=== PATIENT | female | born 1945 | race Caucasian/White ===

== ENCOUNTER → 2023-12-23 09:48 | Outpatient (REF) | payer MEDICARE, SELFPAY | LOC: HWRAD 09:48 | PROVIDERS: ATTENDING PHYSICIAN Obstetrics & Gynecology; FAMILY PHYSICIAN Student in an Organized Health Care Education/Training Program | DX: Z00.00 Encounter for general adult medical examination without abnormal findings (principal); N95.1 Menopausal and female climacteric states; Z12.31 Encounter for screening mammogram for malignant neoplasm of breast | CPT/HCPCS: 77063; 77067; 77080 ==

== ENCOUNTER 2025-01-16 16:14 | Day surgery (SDC) | payer MEDICARE, SELFPAY ==
[2025-01-16 12:59] VITALS: BP 160/91
--- NOTE | 2025-01-16 14:36 | ED.GENMED ---
History of Present Illness
General
Chief Complaint: Foreign Body Ingestion
Source: patient
Time Seen by Provider: 01/16/25 14:23
History of Present Illness
History of Present Illness:
79-year-old female with no significant past medical history presenting to the emergency department from her dentist office for evaluation after a piece of dental equipment came loose and patient accidentally aspirated the small foreign body.
Patient went to urgent care who performed chest x-ray and there was concern that the foreign body is located within the right mainstem bronchus/hilar region. Patient is not having any difficulty breathing, swallowing, no drooling or spitting. She
has no other concerns at this time.
Past History
Past History
ED Past Medical History: None
ED Past Surgical History: None
Social History
Tobacco: Non-smoker
Alcohol: None
Drug: None
Personal:
Living: with family
Employment: Retired
Review of Systems
Review of Systems
All Other Systems: ROS reviewed and negative except as documented in HPI and ROS
Phy Exam
Physical Exam
Physical Exam:
GENERAL: Alert , in no apparent distress
EYE: conjunctiva clear
NECK: Supple
ENT: o/p clr, mmm.
CARDIAC: Regular rate and rhythm
LUNGS: Clear breath sounds bilaterally, no acute respiratory distress, no wheezes/rales/rhonchi
NEUROLOGICAL: Alert and oriented
SKIN: Warm and dry, skin intact.
MUSCULOSKELETAL: well perfused.
PSYCH: Normal and appropriate interaction.
Scores
Heart Failure Risk
Heart Failure Risk Score: Not Applicable
Heart Score for Chest Pain Patients
STEMI patient?: Not applicable
Withdrawal Assessment of Alcohol
Withdrawal Assessment Completed?: Not applicable
Course
Vital Signs
Initial and Last Documented VS:
Initial Vital Signs
Temp Pulse Resp BP Pulse Ox
97.6 F 80 16 160/91 96
01/16/25 12:59 01/16/25 12:59 01/16/25 12:59 01/16/25 12:59 01/16/25 12:59
Last Documented Vital Signs
Temp Pulse Resp BP Pulse Ox
97.6 F 80 16 160/91 96
01/16/25 12:59 01/16/25 12:59 01/16/25 12:59 01/16/25 12:59 01/16/25 12:59
MDM/Problems Addressed
Differential Diagnosis Includes:
Accidental foreign body ingestion, gastrointestinal foreign body
MDM/Problems Addressed:
79-year-old female presenting to the ER for evaluation after accidental foreign body ingestion. X-ray at urgent care showed the suspected foreign body within the right mainstem bronchus. Will notify pulmonary as patient will likely need
bronchoscopy for foreign body retrieval. Advised to remain NPO. She is otherwise stable.
*Pulse Oximetry
Patient hypoxic: no
*Critical Care Note
Total Time (30-74mins, 75-104mins- exclusive of procedures): Not Applicable
Data Reviewed
Review of Other/Old Records Reveals: Radiology Studies
Patient Management
Escalation/DeEscalation of care consider admission/obs:
Pulmonary came to the ER to see the patient. They are planning to take her for bronchoscopy today. Patient to be discharged from upstairs.
ED Attending Note
-
Portions of this chart may have been created with voice recognition software.� Occasional wrong word or��sound alike� substitutions may have occurred due to the inherent limitations of voice recognition software.
Discharge Plan
Departure
Patient Disposition: Other
Date of Disposition: 01/16/25
Time of Disposition: 15:07
Discharge Problem:
Aspiration of foreign body
Prescriptions:
No Action
diazepam 5 MG tablet
5 mg PO BIDPRN PRN (Reason: MUSCLE SPASM/TIGHTNESS) Qty: 20 0RF
Interventions
Interventions:
*Risk Screen - Suicide Last Done: 01/16/25 13:02
*General Assessment Last Done: 01/16/25 13:02
Discharge Date and Time
Print Language: BERMUDIAN
[2025-01-16 15:45] VITALS: BP 126/66; BP 160/91
[2025-01-16 16:00] VITALS: BP 123/70
[2025-01-16 16:15] VITALS: BP 128/59; BP 160/91
[2025-01-16 16:30] VITALS: BP 136/78
[2025-01-16 16:40] VITALS: BP 125/80
== END 2025-01-16 16:53 | disposition home or self-care (01) ==
LOC: SDS 16:14
PROVIDERS: ATTENDING PHYSICIAN Internal Medicine Critical Care Medicine; EMERGENCY PHYSICIAN Emergency Medicine
DX: T17.898A Other foreign object in other parts of respiratory tract causing other injury, initial encounter (principal); W44.8XXA Other foreign body entering into or through a natural orifice, initial encounter; Y93.89 Activity, other specified; Y92.531 Health care provider office as the place of occurrence of the external cause
CPT/HCPCS: 31635; 99285

== ENCOUNTER → 2025-02-22 09:39 | Outpatient (REF) | payer MEDICARE, SELFPAY ==
--- NOTE | 2025-01-16 15:53 | CON.PUL ---
Consultation
Consultation Request
Date/Time Consultation Requested: 01/16/2025
Date/Time Consultation Performed: 01/16/2025
Requesting Provider: Dr. Oliveira
Performing Provider: Dr. Jg Jimenez
Reason for Consultation: Foreign body aspiration
Medical History
-
History of Present Illness:
79-year-old woman with no significant past medical history came to the emergency room sent by her dentist. Possible aspiration of the foreign body while undergoing dental work.
Patient only reported some coughing. Denies shortness of breath, wheezing or phlegm production. Not hypoxemic.
No previous pulmonary disease.
Denies cardiac disease.
Only taking cholesterol medication.
Chest x-ray demonstrated right mainstem foreign body.
I was emergently consulted to see the patient-chest x-ray reviewed with patient and . Bronchoscopy recommended and she was agreeable.
Past Medical History
Past Medical History: Hypercholesterolemia
Social History
Tobacco: Non-smoker
Alcohol: None
Drug: None
Personal:
Living: With Family
Family History
Family History: Reviewed & Not Pertinent
Allergies / Home Medications
Allergies
Allergy/AdvReac Type Severity Reaction Status Date / Time
No Known Allergies Allergy Verified 01/16/25 13:02
Home Medications
�Medication �Instructions �Recorded �Confirmed �Last Taken �Type
diazepam 5 mg tablet 5 mg PO BIDPRN PRN MUSCLE 02/06/13 Unknown Rx
SPASM/TIGHTNESS #20 tabs
Review of Systems
-
History Source: Patient
All other systems: Negative unless noted
Vitals / Labs / Diagnostic Testing
Diagnostic Testing:
Chest x-ray: Reviewed showed right perihilar foreign body. No atelectasis. No pneumothorax.
Physical Exam
-
HEENT: Normocephalic
Cardiovascular: S1/S2
Respiratory: Non-Labored Respirations
GI: Soft and Non Distended
Neurology: Awake, AO x 3 and No Motor Deficits
Skin: Warm
General: Comfortable
Assessment
-
79-year-old woman admitted with a foreign body aspiration after dental work. I was consulted for evaluation
Foreign body aspiration: Possibly dental tool..
Chest x-ray: Right perihilar foreign body noted.
History of hypercholesterolemia
Assessment and plan:
Foreign body aspiration during dental work.
Hemodynamically stable.
Clear lung exam
Not requiring oxygen
Recommending bronchoscopy for foreign body retrieval. Patient is agreeable.
Procedure was explained in detail and she would like to proceed.
She does not take any weight loss medication.
Does not take any blood thinners.
-
I personally coordinated bronchoscopy with the procedure suite.
Anesthesia also was involved.
-
Patient was sent to the procedure suite. Bronchoscopy underwent without complications.
Discharge after procedure if remaining stable.
== END ==
LOC: HWWDC 09:39
PROVIDERS: ATTENDING PHYSICIAN Obstetrics & Gynecology; FAMILY PHYSICIAN Emergency Medicine
DX: Z12.31 Encounter for screening mammogram for malignant neoplasm of breast (principal)
CPT/HCPCS: 77063; 77067

== ENCOUNTER → 2025-06-12 08:47 | Outpatient (REF) | payer MEDICARE, SELFPAY | LOC: HWRAD 08:47 | PROVIDERS: ATTENDING PHYSICIAN Nurse Practitioner Adult Health; FAMILY PHYSICIAN Emergency Medicine | DX: D75.1 Secondary polycythemia (principal); R53.82 Chronic fatigue, unspecified | CPT/HCPCS: 76700 ==

== ENCOUNTER 2025-09-02 06:35 | Emergency (ER) | payer MEDICARE, SELFPAY ==
[2025-09-02] VITALS (8 sets, daily range): BP systolic 88–114; BP diastolic 54–68
--- NOTE | 2025-09-02 08:15 | ED.GENMED ---
History of Present Illness
General
Chief Complaint: Dizziness
Time Seen by Provider: 09/02/25 08:08
History of Present Illness
History of Present Illness:
79-year-old female with history of hyperlipidemia presents to the emergency department for evaluation of dizziness and a syncopal event that occurred in the early hours this morning. She states she got up from sleep to use the restroom when she
felt dizzy, laid back down on the bed and found her to be unresponsive for approximately 1 minute. No visible seizure activity. She was noted to be hypotensive for EMS and fluids were started, approximately 200 cc administered thus far.
She reports that last night she felt constant chills and rigors but no objective fever otherwise. Denies any cough or shortness of breath. Does note low back and left shoulder pain. No dysuria or hematuria. No recent ill contacts. Of note she
is currently undergoing testing for polycythemia
Past History
Past History
ED Past Medical History: None
ED Past Surgical History: None
Social History
Tobacco: Non-smoker
Alcohol: None
Drug: None
Personal:
Living: with family
Employment: Retired
Review of Systems
Review of Systems
Allergies reviewed?: Yes
All Other Systems: ROS reviewed and negative except as documented in HPI and ROS
Phy Exam
Physical Exam
Physical Exam:
GEN: Well appearing, NAD, WDWN
HEENT: Oral mucosa moist, no scleral icterus
Cardiac: Regular rate and rhythm, no murmur
Lung: No respiratory distress, no tachypnea, lungs clear to auscultation
MSK: No gross deformity or injuries, no lower extremity edema
Skin: Good color, no pallor or jaundice, no rashes
Neuro: AO x3, moves all extremities freely
Psych: Calm, cooperative
Course
Orders/Labs/Results
Orders:
Orders
09/02/25 08:20
COVID-19 Antigen Urgent
Source: Nasal Swab
Complete Blood Count/With Diff Urgent
Influenza A+B Rapid Molecular Urgent
MARCO ANTONIO Source: Nasal Swab
Specimen Description:
09/02/25 09:17
Comprehensive Metabolic Panel Urgent
Urinalysis Reflex To Culture Urgent
Date Specimen was Collected: 09/02/25
Time Specimen was Collected: 09:16
Urine Microscopic Reflex Cult Urgent
Urine Culture Urgent
MARCO ANTONIO Source: U
Specimen Description:
Date Specimen was Collected: 09/02/25
Time Specimen was Collected: 09:16
Abnormal Lab Results
09/02/25 09/02/25
08:20 09:17
RBC 5.69 H 10^6/uL
(4.20-5.40)
MCV 79.8 L fL
(81.0-99.0)
MCH 26.5 L pg
(27.0-31.0)
MPV 10.8 H fL
(7.4-10.4)
Absolute Neuts (auto) 8.2 H 10^3/uL
(1.4-6.5)
Absolute Lymphs (auto) 0.3 L 10^3/uL
(1.2-3.4)
Neutrophils % 93.1 H %
(42.2-75.2)
Lymphocytes % 3.3 L %
(20.5-51.1)
Sodium 134 L mmol/L
(135-145)
Glucose 111 H mg/dl
(70-99)
Leukocyte Esterase Rfl 1+ A
(Negative)
Urine Bacteria (Reflex) Few A
(Negative)
Urine Albumin (Reflex) 2+ A
(Neg - Trace)
09/02/25 08:20
09/02/25 09:17
Vital Signs
Initial and Last Documented VS:
Initial Vital Signs
Pulse Resp Pulse Ox
87 18 96
12/21/25 06:40 09/02/25 06:40 09/02/25 06:40
Last Documented Vital Signs
Temp Pulse Resp BP Pulse Ox
97.8 F 87 23 101/56 99
09/02/25 06:46 09/02/25 10:00 09/02/25 10:00 09/02/25 10:00 09/02/25 10:00
MDM/Problems Addressed
MDM/Problems Addressed:
Patient's blood pressure gradually improved in the ED and she was able to ambulate without dizziness. Uncertain etiology to her syncope however overall lab workup was reassuring. Suitable for discharge home
*Pulse Oximetry
SaO2: 94
Oxygen Mode of Delivery: Room air
Patient hypoxic: no
*Critical Care Note
Total Time (30-74mins, 75-104mins- exclusive of procedures): Not Applicable
ED Attending Note
-
Portions of this chart may have been created with voice recognition software.� Occasional wrong word or��sound alike� substitutions may have occurred due to the inherent limitations of voice recognition software.
Discharge Plan
Departure
Patient Disposition: Home (Routine Discharge)
Date of Disposition: 09/02/25
Time of Disposition: 10:23
Patient with high blood pressure during this ER visit?: No
Discharge Problem:
Syncope
Instructions: Syncope (fainting) (DC)
Prescriptions:
No Action
diazepam 5 MG tablet
5 mg PO BIDPRN PRN (Reason: MUSCLE SPASM/TIGHTNESS) Qty: 20 0RF
Referrals:
Pati Alejandre MD [Family Provider, Internal Medicine]
Interventions
Interventions:
*General Assessment Last Done: 09/02/25 06:44
*Neglect/Abuse Screening Last Done: 09/02/25 06:44
*ED COVID-19 Vaccine History Last Done: 09/02/25 06:44
*ED Influenza Vaccine History Last Done: 09/02/25 06:44
[facility] Fall Risk Assessment Tool Last Done: 09/02/25 06:45
*Risk Screen - Suicide (C-SSRS) Last Done: 09/02/25 06:44
*Nursing Disposition Last Done: 09/02/25 10:35
ED- Neurological Assessment Last Done: 09/02/25 06:47
ED- Cardiac Assessment Last Done: 09/02/25 10:35
ED Swallowing Screen Last Done: 09/02/25 06:47
Discharge Date and Time
Discharge Date/Time: 09/02/25 10:35
Print Language: TURKISH
[2025-09-02 08:45] LABS: Hematocrit 45.4 % (37.0-47.0); Hemoglobin 15.1 g/dL (12.0-16.0); Mean Corp Hgb Conc. 33.3 g/dL (33.0-37.0); Mean Corpuscular Volume 79.8 fL (81.0-99.0); Nucleated Red Blood Cells % 0 %; Platelet Count 184 10^3/uL (130-400); Red Cell Dist. Width 13.8 % (11.5-14.5)
[2025-09-02 08:52] LABS: COVID-19 Antigen Negative (Negative)
[2025-09-02 09:27] LABS: Urine Character Clear (Clear)
[2025-09-02 09:45] LABS: ALT (SGPT) 22 U/L (0-35); AST (SGOT) 34 U/L (14-36); Albumin 3.8 g/dl (3.5-5.0); Alkaline Phosphatase 98 U/L (38-126); Blood Urea Nitrogen 17 mg/dl (7-17); Calcium 8.6 mg/dl (8.4-10.2); Carbon Dioxide 22 mmol/L (22-30); Chloride 106 mmol/L (98-107); Estimated Creatinine Clearance 50 ml/min; Glucose 111 mg/dl (70-99); Potassium 4.6 mmol/L (3.5-5.1); Sodium 134 mmol/L (135-145); Total Protein 6.4 g/dl (6.3-8.2); eGFR > 60.00
[2025-09-02 10:12] LABS: Urine Urothelial Cell 0-2 /LPF (FEW)
[2025-09-02 10:13] LABS: Urine Red Blood Cell 0-2 /HPF (0-2)
== END 2025-09-02 10:35 | disposition home or self-care (01) ==
LOC: EMR 06:35
PROVIDERS: Physician Assistant; EMERGENCY PHYSICIAN Emergency Medicine; FAMILY PHYSICIAN Emergency Medicine
DX: R55 Syncope and collapse (principal); E78.5 Hyperlipidemia, unspecified
CPT/HCPCS: 99284; 80053; 81003; 81015; 85025; 87086; 87502; 87811